=== PATIENT | female | born 1945 | race African-American/Black ===

== ENCOUNTER 2018-04-08 14:24 | Outpatient (CLI) | payer MEDICARE | END 2018-04-08 14:25 | disposition home or self-care (01) | LOC: BICMAMMO 14:24 | PROVIDERS: ATTEND Internal Medicine | DX: Z12.31 Encounter for screening mammogram for malignant neoplasm of breast (principal); Z80.3 Family history of malignant neoplasm of breast | CPT/HCPCS: 77063; 77067 ==

== ENCOUNTER 2018-08-16 00:23 | Observation (INO) | payer MEDICARE ==
[2018-08-16 01:12] LABS: #Eosinphils 0.2 thou/uL (0.0-0.7); #Lymphocytes 2.2 thou/uL (1.20-3.40); #Monocytes 0.4 thou/uL (0.11-0.59); #Neutrophils 2.3 thou/uL (1.40-6.50); %Basophils 0.7 % (0.0-1.0); %Eosinophils 3.1 % (0.0-10.0); %Lymphocytes 43.3 % (21.0-51.0); %Monocytes 7.6 % (0.0-10.0); %Neutrophils 45.2 % (42.0-75.0); Hemoglobin 12.7 g/dL (12.0-16.0); Mean Corpuscular HGB CONC 32.4 g/dL (32.0-36.0); Mean Corpuscular Hemoglobin 30.4 pg (27.0-31.0); Mean Corpuscular Volume 93.7 fL (78.0-98.0); Mean Platelet Volume 8.7 fL (7.4-10.4); Platelet Count 160 thou/uL (130-400); RBC Distribution Width 12.2 % (11.5-14.5); Red Blood Cell (RBC) Count 4.19 mill/uL (4.20-5.40)
[2018-08-16 01:34] LABS: ALT (SGPT) 8 U/L (8-55); AST (SGOT) 22 U/L (5-34); Albumin 4.1 g/dL (3.4-4.8); Alkaline Phosphatase 98 U/L (40-150); Anion Gap 13 mmol/L (10-20); BUN (Urea Nitrogen) 21 mg/dL (9.8-20.1); Bilirubin, Total 0.2 mg/dL (0.2-1.2); Calc. Creatinine Clearance 0 mL/min (70-130); Calcium 9.9 mg/dL (7.8-10.44); Carbon Dioxide 27 mmol/L (23-31); Chloride 105 mmol/L (98-107); Estimated GFR-MDRD 57; Globulin 3.6 g/dL (2.4-3.5); Glucose 136 mg/dL (83-110); Potassium 4.3 mmol/L (3.5-5.1); Protein, Total 7.7 g/dL (6.0-8.3); Sodium 141 mmol/L (136-145)
[2018-08-16] MEDS ORDERED: Aspirin 325 MG TAB ONE (03:30)
--- NOTE | 2018-08-16 04:18 | HP ---
PRIMARY CARE PHYSICIAN: Radha Duarte MD CHIEF COMPLAINT: Chest pain. HISTORY OF PRESENT ILLNESS: Ms. Eunice Spain is a 73-year-old female with past medical history of hypertension and hyperlipidemia, who presents to the emergency department for chest tightness that started like around 11:00 p.m. and resolved around 11:30. The patient felt that it was central and did not radiate anywhere. The patient denies any chest pain since. The patient was accompanied by her . The patient reports history of hypertension and hyperlipidemia and she is taking simvastatin and losartan. The patient denies any abdominal pain, nausea, vomiting, diarrhea, or acid reflux. PAST MEDICAL HISTORY: Hypertension and hyperlipidemia. PAST SURGICAL HISTORY: Right shoulder surgery. PSYCHIATRIC HISTORY: Anxiety. SOCIAL HISTORY: Denies alcohol, drugs, or smoking. ALLERGIES: NO KNOWN ALLERGIES TO DRUGS. FAMILY HISTORY: Denies any history of heart problems. CURRENT MEDICATIONS: Losartan and simvastatin. REVIEW OF SYSTEMS: A 10-point review of systems negative, other than mentioned in the HPI. PHYSICAL EXAMINATION: VITAL SIGNS: Blood pressure 182/79, pulse 79, respiratory rate 16, temperature 98.2, and O2 saturation 98% on room air. GENERAL: The patient is alert, pleasant, and cooperative. HEENT: Head, atraumatic. Ears, nose, and throat; no bleeding, exudate, or discharge noted. Extraocular movement of eyes intact. NECK: No lymphadenopathy or JVD noted. CARDIOVASCULAR: No murmur, rubs, or gallops. Regular rate and rhythm. PULMONARY: Clear bilaterally. No wheezes noted. ABDOMEN: Soft and nontender. Bowel sounds are positive. EXTREMITIES: No edema noted. NEUROLOGIC: The patient is alert and cooperative. SKIN: No rashes noted. LABORATORY DATA: WBC 5, hemoglobin 12.7, hematocrit 39.2, and platelets 160. Sodium 141, potassium 4.3, chloride 105, carbon dioxide 27, BUN 21, creatinine 1.13, and glucose 136. Troponin negative. DIAGNOSTIC DATA: EKG per ER, possible concerning for inversion and flattening of T-wave when compared to previous EKG per ER. I did not have access to old ER. Chest x-ray, report pending, but appears to be negative for acute cardiopulmonary abnormalities. ASSESSMENT: 1. Chest pain. 2. Hypertension. 3. Hyperlipidemia. PLAN: The patient is admitted for chest pain. ACS rule out. The patient's chest pain has resolved. Review of record noted that 2 years ago, the patient had a stress test and that was normal as well too. Troponin negative. We will trend troponin, tele. We will order a pharmacological stress in the morning. The patient may be discharged if all her tests are negative. Hypertension. BP elevated on admission. Continue home medication plus hydralazine p.r.n. Continue home simvastatin. The patient is a full code. Medical power of optomechanical engineer, . DVT prophylaxis addressed. Job ID: [id number]
[2018-08-16 04:29] LABS: Troponin I Less than 0.010 ng/mL (< 0.028)
[2018-08-16] MEDS ORDERED: Nitroglycerin 0.4 MG TAB (25 Tab Bottle) SL PRN (05:19)
[2018-08-16] MEDS ORDERED: Ondansetron PF 4 MG/2 ML Vial IVP PRN (05:19)
[2018-08-16] MEDS ORDERED: hydrALAZINE 20 MG/ML VIAL SLOW IVP PRN (05:19)
[2018-08-16] MEDS ORDERED: HYDROcodone/Acetaminophen 5/325 mg Tablet PO PRN (05:19)
[2018-08-16] MEDS ORDERED: Acetaminophen 325 MG TAB PO PRN (05:19)
[2018-08-16 05:29] VITALS: BMI 37.4
--- NOTE | 2018-08-16 05:59 | RAD ---
CHEST ONE VIEW: INDICATIONS: Cough. Chest discomfort for one hour. COMPARISON: 01/06/2017 FINDINGS: The lungs are clear. Heart size is normal. No acute osseous abnormality is evident. IMPRESSION: No acute cardiopulmonary abnormality. POS: BH
[2018-08-16 08:19] LABS: Troponin I Less than 0.010 ng/mL (< 0.028)
[2018-08-16] MEDS ORDERED: Montelukast Sodium 10 mg Tablet PO PRN (08:36)
[2018-08-16] MEDS ORDERED: Aspirin Chewable 81 MG TAB PO SCH (09:00)
[2018-08-16] MEDS ORDERED: Enoxaparin Sodium 40 MG/0.4 ML SYRINGE SC SCH (09:00)
[2018-08-16] MEDS ORDERED: Multivit, Therapeutic 1 TAB PO SCH (09:00)
[2018-08-16 12:14] VITALS: BP 139/84; TEMP 97.7
--- NOTE | 2018-08-16 12:43 | NM ---
STRESS ONLY MYOCARDIAL PEFUSION EVALUATION: INDICATIONS: History of chest pain. RADIOPHARMACEUTICAL: Technetium 99m sestamibi 33 millicuries IV with stress. FINDINGS: The rotational raw data was within normal limits. No radiopharmaceutical defect is evident on the stress images. There is normal wall motion and thick ening. The estimated LVEF is 71%. IMPRESSION: Normal stress only myocardial perfusion evaluation. POS: ABRAHAM
[2018-08-16] MEDS ORDERED: ADENOSINE 60 MG/20 ML VIAL ONE (13:19)
--- NOTE | 2018-08-16 16:33 | DIS ---
DATE OF ADMISSION: 08/16/2018 DATE OF DISCHARGE: 08/16/2018 CONDITION: At the time of discharge, stable and improved. DISCHARGE DISPOSITION: Home. PRIMARY CARE PHYSICIAN: Radha Duarte MD. DISCHARGE DIAGNOSIS: Chest pain, acute coronary syndrome rule out noncardiac. SECONDARY DISCHARGE DIAGNOSIS: As per the HPI. PROCEDURES DONE IN HOSPITAL: Nuclear medicine stress test, which is negative for any reversible or fixed defect. Ejection fraction is noticed at 71%. No wall motion abnormality or thickening noticed. DISCHARGE MEDICATIONS: Discharge medications remain the same as admission medication as follows; 1. Zocor 5 mg daily. 2. Singulair 10 mg daily. 3. Lisinopril-hydrochlorothiazide 50/12.5 mg p.o. b.i.d. 4. Aspirin 81 mg daily. 5. Multivitamin daily. 6. Daily travoprost eyedrops. HISTORY OF PRESENTING ILLNESS: Ms. Spain is a pleasant 73-year-old female with past medical history of hypertension and dyslipidemia, who presented to the ER with complaints of chest pain. She was admitted earlier this morning by my colleague, Dr. Barragan. Please see H and P for further details. She was admitted for ACS rule out. The patient's serial cardiac enzymes were trended and were negative x3. Her hospital course was on remarkable. She underwent a nuclear medicine stress test for ACS workup, which was unremarkable. She will be discharged back home to follow up with PCP. She is in a stable condition. She was seen and examined prior to discharge. PHYSICAL EXAMINATION: VITAL SIGNS: Vital signs are stable with a blood pressure of 139/84, heart rate of 64, saturating 99% on room air. GENERAL: No acute distress. CHEST: Clear to auscultation without any wheezing. Rate and rhythm are regular. All questions were answered and discharge plan was discussed with the patient, who verbalized understanding. Job ID: [id number]
[2018-08-16] MEDS ORDERED: Simvastatin 5 MG TAB PO SCH (21:00)
[2018-08-16] MEDS ORDERED: Latanoprost 0.005% Ophth Soln 2.5 ml Bottle EA EYE SCH (21:00)
== END 2018-08-16 16:36 | disposition home or self-care (01) ==
LOC: ERS 00:23 → 2SW 05:16
PROVIDERS: ADMIT Family Medicine; ATTEND Family Medicine
DX: R07.89 Other chest pain (principal); I10 Essential (primary) hypertension; E78.5 Hyperlipidemia, unspecified; F41.9 Anxiety disorder, unspecified; J45.909 Unspecified asthma, uncomplicated; Z79.82 Long term (current) use of aspirin; Z79.899 Other long term (current) drug therapy
CPT/HCPCS: 71045; 78452; 80053; 84484 ×2; 85025; 93005; 93017; 96372; 96374; 99285; A9500; G0378 ×2; 36415; J0153; J0360; J1650

== ENCOUNTER 2019-04-27 13:56 | Outpatient (CLI) | payer MEDICARE ==
--- NOTE | 2019-04-27 14:25 | MMO ---
Bilateral MAMMO Bilat Screen [facility]. CLINICAL HISTORY: Patient is 73 years old and is seen for screening. The patient has no family history of breast cancer. The patient has no personal history of cancer. The patient has a history of right Excisional Biopsy in 1996 - benign bx. VIEWS: The views performed were: bilateral craniocaudal with tomosynthesis and bilateral mediolateral oblique with tomosynthesis. FILMS COMPARED: The present examination has been compared to prior imaging studies performed at [facility] on 04/02/2015, 04/03/2016, 04/06/2017 and 04/08/2018. This study has been interpreted with the assistance of computer-aided detection. MAMMOGRAM FINDINGS: There are scattered fibroglandular densities. There are no suspicious masses, suspicious calcifications, or new areas of architectural distortion. IMPRESSION: THERE IS NO MAMMOGRAPHIC EVIDENCE OF MALIGNANCY. A ROUTINE FOLLOW-UP MAMMOGRAM IN 1 YEAR IS RECOMMENDED. THE RESULTS OF THIS EXAM WERE SENT TO THE PATIENT. ACR BI-RADS Category 1 - Negative MAMMOGRAPHY NOTE: 1. A negative mammogram report should not delay a biopsy if a dominant of clinically suspicious mass is present. 2. Approximately 10% to 15% of breast cancers are not detected by mammography. 3. Adenosis and dense breasts may obscure an underlying neoplasm. Reported by: JESSE DE LA CRUZ MD Electonically Signed: [id number]
== END 2019-04-27 13:57 | disposition home or self-care (01) ==
LOC: BICMAMMO 13:56
PROVIDERS: ATTEND Internal Medicine
DX: Z12.31 Encounter for screening mammogram for malignant neoplasm of breast (principal)
CPT/HCPCS: 77063; 77067

== ENCOUNTER 2020-01-09 07:24 | Outpatient (CLI) | payer MEDICARE ==
--- NOTE | 2020-01-09 08:00 | ULT ---
ULTRASOUND ABDOMEN: HISTORY: Abdominal pain, acid reflux FINDINGS: The liver, spleen, gallbladder, pancreas, kidneys and visualized portions of the aorta and IVC appear normal. The common duct measures 3 mm in diameter. No free fluid is seen. IMPRESSION: Normal exam.
--- NOTE | 2020-01-09 08:01 | ULT ---
US Pelvic Limited HISTORY: Generalized abdominal pain COMPARISON: None. FINDINGS: A transabdominal pelvic ultrasound was performed. The patient refused the transvaginal ultrasound. The uterus and ovaries are not visualized. No mass or free fluid is seen.
== END 2020-01-09 07:25 | disposition home or self-care (01) ==
LOC: BICULT 07:24
PROVIDERS: ATTEND Internal Medicine
DX: R10.9 Unspecified abdominal pain (principal); R06.00 Dyspnea, unspecified
CPT/HCPCS: 76857; 93975

== ENCOUNTER 2020-04-10 10:05 | Emergency (ER) | payer MEDICARE, OTHER ==
[2020-04-10 17:30] LABS: SARS-CoV-2 MS2 Positive; SARS-CoV-2 N Gene Negative; SARS-CoV-2 S Gene Negative; SARS-CoV-2 by NAA Not Detected (NotDetected); SARS-CoV-2 orf1ab Negative
== END 2020-04-10 10:48 | disposition home or self-care (01) ==
LOC: ERS 10:05
DX: Z20.828 Contact with and (suspected) exposure to other viral communicable diseases (principal); J45.909 Unspecified asthma, uncomplicated; R73.03 Prediabetes; F41.9 Anxiety disorder, unspecified; I10 Essential (primary) hypertension; E78.5 Hyperlipidemia, unspecified; Z79.82 Long term (current) use of aspirin; Z79.899 Other long term (current) drug therapy
CPT/HCPCS: 87635; 99283; U0003

== ENCOUNTER 2020-06-11 13:26 | Outpatient (CLI) | payer MEDICARE ==
--- NOTE | 2020-06-11 15:01 | MMO ---
Bilateral MAMMO Bilat Screen [facility]. CLINICAL HISTORY: Patient is 75 years old and is seen for screening. The patient has no family history of breast cancer. The patient has no personal history of cancer. The patient has a history of right Excisional Biopsy in 1996 - benign bx. VIEWS: The views performed were: bilateral craniocaudal with tomosynthesis and bilateral mediolateral oblique with tomosynthesis. FILMS COMPARED: The present examination has been compared to prior imaging studies performed at [facility] on 04/03/2016, 04/06/2017, 04/08/2018 and 04/27/2019. This study has been interpreted with the assistance of computer-aided detection. MAMMOGRAM FINDINGS: The breasts are almost entirely fat. There are no suspicious masses, suspicious calcifications, or new areas of architectural distortion. IMPRESSION: THERE IS NO MAMMOGRAPHIC EVIDENCE OF MALIGNANCY. A ROUTINE FOLLOW-UP MAMMOGRAM IN 1 YEAR IS RECOMMENDED. THE RESULTS OF THIS EXAM WERE SENT TO THE PATIENT. ACR BI-RADS Category 1 - Negative MAMMOGRAPHY NOTE: 1. A negative mammogram report should not delay a biopsy if a dominant of clinically suspicious mass is present. 2. Approximately 10% to 15% of breast cancers are not detected by mammography. 3. Adenosis and dense breasts may obscure an underlying neoplasm. Reported by: CONCHITA SHELTON MD Electonically Signed: [id number]
== END 2020-06-11 13:27 | disposition home or self-care (01) ==
LOC: BICMAMMO 13:26
PROVIDERS: ATTEND Internal Medicine
DX: Z12.31 Encounter for screening mammogram for malignant neoplasm of breast (principal); Z91.89 Other specified personal risk factors, not elsewhere classified
CPT/HCPCS: 77063; 77067

== ENCOUNTER 2021-06-13 09:25 | Outpatient (CLI) | payer MEDICARE | END 2021-06-13 09:26 | disposition home or self-care (01) | LOC: BICMAMMO 09:25 | PROVIDERS: ATTEND Internal Medicine | DX: Z12.31 Encounter for screening mammogram for malignant neoplasm of breast (principal); Z13.820 Encounter for screening for osteoporosis; M85.88 Other specified disorders of bone density and structure, other site; Z80.3 Family history of malignant neoplasm of breast; Z91.89 Other specified personal risk factors, not elsewhere classified | CPT/HCPCS: 77063; 77067; 77080 ==

== ENCOUNTER 2021-12-12 02:13 | Emergency (ER) | payer MEDICARE ==
[2021-12-12] MEDS ORDERED: Ibuprofen 200 MG TAB ONE (03:22)
[2021-12-12 05:29] LABS: SARS-CoV-2 NAA Rapid Test DETECTED (NotDetected)
== END 2021-12-12 05:42 | disposition home or self-care (01) ==
LOC: ERS 02:13
DX: U07.1 COVID-19 (principal); Z79.899 Other long term (current) drug therapy; Z79.82 Long term (current) use of aspirin
CPT/HCPCS: 87804 ×2; 93005; 99284; U0002